=== PATIENT | male | born 1935 | race Caucasian/White ===

== ENCOUNTER 2018-11-07 14:18 | Inpatient (IN) | payer MEDICARE, OTHER ==
[~2018-11-07] VITALS: Ht 167.6 cm; Wt 85.7 kg
[~2018-11-07 14:18] MED LIST: ACETAMINOPHEN325 M1 PO; ADULT LOW DOSE81 MG; ASPIRIN325 PO; CARISOPRODOL 3350 MG PO; HYDROCODONE-AP1 EAC6 PO; MELATONIN 5 MG1 EAC1 PO; MELATONIN5 M1 PO; NATTOKINASE PO; NORCO 5-325 TA1 EACH PO; PRAMIPEXOLE0.125 MG PO; PREDNISONE 10 M10 MG PO; REQUIP 1 MG TABL1 M1 PO; SORINE 80 MG TA80 M1 PO; TOPROL XL25 MG PO; VENTOLIN HFA 1818 GM INH; VIT E PO; XARELTO20 MG PO; ZETIA10 MG PO
[2018-11-07 14:23] VITALS: BP 183/96
[2018-11-07] MEDS ORDERED: LOPRESSOR50 PO (14:32)
[2018-11-07 14:49] LABS: ABSOLUTE EOSINOPHILS 0.1 thou/uL (0.0-0.7); ABSOLUTE LYMPHOCYTES 2.3 thou/uL (0.8-5.3); ABSOLUTE MONOCYTES 0.9 thou/uL (0.0-1.2); ABSOLUTE NEUTROPHILS 3.9 thou/uL (1.6-8.1); BASOPHILS 0.5 %; EOSINOPHILS 1.6 %; HEMATOCRIT 46.2 % (42.0-52.0); HEMOGLOBIN 15.7 gm/dL (14.0-18.0); LYMPHOCYTES 32.1 %; MCH 32.3 pg (26.0-34.0); MCV 95.1 fL (80.0-100.0); MONOCYTES 12.5 %; NUCLEATED RBCS 0 /100WBC; PLATELET COUNT* 205 thou/uL (150-400); POLYS 53.3 %; RBC 4.86 mil/uL (4.50-6.00); RDW-CV 14.2 % (10.5-14.5); WBC 7.2 thou/uL (4.0-11.0)
[2018-11-07 14:58] LABS: ANION GAP 8 mmol/L (7-16); BUN 24 mg/dL (7-18); CALCIUM 8.9 mg/dL (8.5-10.1); CHLORIDE 100 mmol/L (98-107); CO2 28 mmol/L (21-32); CREATININE 1.2 mg/dL (0.6-1.3); GLUCOSE 112 mg/dL (70-99); POTASSIUM 4.1 mmol/L (3.5-5.1); SODIUM 136 mmol/L (136-145)
[2018-11-07 15:11] LABS: ALBUMIN 3.4 g/dL (3.4-5.0); ALKALINE PHOSPHATASE 51 U/L (46-116); MAGNESIUM 2.2 mg/dL (1.8-2.4); NT-PRO BRAIN NAT PEPTIDE 1154 pg/mL (<300); SGOT 22 U/L (15-37); SGPT 18 U/L (30-65); TOTAL BILIRUBIN 0.2 mg/dL (<0.1-1.0); TOTAL PROTEIN 7.4 g/dL (6.4-8.2); TROPONIN-I LEVEL <0.06 ng/mL (<0.06)
[2018-11-07 15:56] LABS: APTT 28.6 Seconds (25.0-31.3); INR 1.2
--- NOTE | 2018-11-07 16:27 | NUR ---
PT CARDIZEM DRIP INCREASED TO 10.
[2018-11-07 17:22] VITALS: BP 147/74
[2018-11-07 20:15] VITALS: BP 120/60
[2018-11-08] VITALS: BP 114/55
[2018-11-08 04:00] VITALS: BP 135/60
[2018-11-08 04:44] LABS: HEMATOCRIT 42.4 % (42.0-52.0); HEMOGLOBIN 14.4 gm/dL (14.0-18.0); MCH 32.1 pg (26.0-34.0); MCV 94.5 fL (80.0-100.0); MPV 7.7 fl. (7.2-11.1); RBC 4.49 mil/uL (4.50-6.00); RDW-CV 13.9 % (10.5-14.5); WBC 6.7 thou/uL (4.0-11.0)
[2018-11-08 05:06] LABS: ALBUMIN 3.1 g/dL (3.4-5.0); CALCIUM 8.9 mg/dL (8.5-10.1); CREATININE 1.2 mg/dL (0.6-1.3); POTASSIUM 4.1 mmol/L (3.5-5.1); TOTAL BILIRUBIN 0.4 mg/dL (<0.1-1.0); TOTAL PROTEIN 6.5 g/dL (6.4-8.2)
--- NOTE | 2018-11-08 06:01 | NUR ---
VSS. PT C/O HEADACHE, RELIEVED BY PRN TYLENOL. HR CONTROLLED, CARDIZEM GTT INFUSING ORDERED. DENIES SOA. CALL LIGHT WITHIN REACH.
[2018-11-08 08:00] VITALS: BP 140/68
--- NOTE | 2018-11-08 09:28 | EKG ---
[place] [address] ELECTROCARDIOGRAM REPORT Name: COSME MONROE Room: [address] ADM IN .R.#: [id number] Admission: 11/07/18 Attend Phys: Radha Brown Discharge: Date of : 39 Report #: [id number] THIS REPORT FOR: //name// [facility] ED Test Date: 2018-11-07 Test Time: 14:26:11 Pat Name: COSME GOLDBERGJOSESITO Department: Room: [facility] Gender: M Jewel Setter: EV : 1935 Requested By: Donna Gaston Order Number: [id number] MD: Lloyd Corona Measurements Intervals [place] Rate: 124 P: [place]: QRS: 22 QRSD: 137 T: 2 QT: 334 QTc: 480 Interpretive Statements Afib/flut and V-paced complexes No further rhythm analysis attempted due to paced rhythm Right bundle branch block Inferior infarct, old Compared to ECG 10/16/2015 10:40:16 Myocardial infarct finding now present Sinus bradycardia no longer present Atrial premature complex(es) no longer present Electronically Signed On 11-08-2018 9:28:21 CDT by Lloyd Corona [email or web address] <ELECTRONICALLY SIGNED> By: Lloyd Corona MD, FACC 11/08/18 0928 1426 1426 Lloyd Corona MD, FACC /EPI
[2018-11-08 12:00] VITALS: BP 122/59
--- NOTE | 2018-11-08 14:25 | 2DMMODE ---
[place] [address] 2 D/M-MODE ECHOCARDIOGRAM Name: COSME MONROE Room: [address] IN .R.#: [id number] Admission: 11/07/18 Attend Phys: Juan Jose Carrington Discharge: Date of : 39 Date of Service: 11/08/18 1425 Report #: [id number] THIS REPORT FOR: //name// APPROVED REPORT Study performed: 11/08/2018 11:11:33 EXAM: Comprehensive 2D, Doppler, and color-flow Echocardiogram Patient Location: Out-Patient BSA: 1.92 HR: 81 bpm BP: 140/68 mmHg Other Information Study Quality: Good Indications Atrial Fibrillation 2D Dimensions IVSd: 12.33 (7-11mm) LVOT Diam: 20.19 (18-24mm) LVDd: 44.84 mm PWd: 11.72 (7-11mm) Ascending Ao: 32.06 (22-36mm) LVDs: 31.40 (25-40mm) Aortic Root: 28.97 mm Volumes Left Atrial Volume (Systole) LA ESV Index: 16.90 mL/m2 Aortic Valve AoV Peak Rob.: 1.41 m/s AO Peak Gr.: 7.97 mmHg LVOT Max P.07 mmHg AO Mean Gr.: 4.29 mmHg LVOT Mean P.41 mmHg LVOT Max V: 0.88 m/s AO V2 VTI: 28.65 cm LVOT Mean V: 0.54 m/s ALEX (VTI): 2.26 cm2 LVOT V1 VTI: 20.27 cm Mitral Valve E/A Ratio: 1.28 MV Decel. Time: 180.26 ms MV E Max Rob.: 0.96 m/s MV PHT: 52.28 ms MVA (PHT): 4.21 [place] [address] 2 D/M-MODE ECHOCARDIOGRAM Name: COSME MONROE Room: [address] IN ..#: [id number] Admission: 11/07/18 Attend Phys: Juan Jose Carrington Discharge: Date of : 39 Date of Service: 11/08/18 1425 Report #: [id number] TDI E/Lateral E': 9.60 E/Medial E': 16.00 Medial E' Rob.: 0.06 m/s Lateral E' Rob.: 0.10 m/s Pulmonary Valve PV Peak Rob.: 0.88 m/s PV Peak Gr.: 3.08 mmHg Tricuspid Valve RAP Estimate: 5.00 mmHg TR Peak Gr.: 28.14 mmHg RVSP: 33.14 mmHg PA Pressure: 33.14 mmHg Left Ventricle The left ventricle is normal size. There is mild left ventricular systolic dyssynergy consistent with underlying bundle branch block. Global LV systolic function appears to be fairly well-preserved. There is normal left ventricular wall thickness. Left ventricular systolic function is normal. LVEF is 50-55%. Transmitral Doppler flow pattern suggests impaired LV relaxation. Right Ventricle The right ventricle is normal size. The right ventricular systolic function is normal. ICD lead is present in the right ventricle. Atria The left atrium size is normal. Pacemaker lead is present in the right atrium. Aortic Valve The aortic valve is normal in structure. No aortic regurgitation is present. There is no aortic valvular stenosis. Mitral Valve Mild mitral annular calcification. Mitral valve leaflets are mildly thickened. Mild mitral regurgitation. No evidence of mitral valve stenosis. Tricuspid Valve The tricuspid valve is normal in structure. Mild tricuspid regurgitation. The RVSP is 35-40 mmHg. Pulmonic Valve The pulmonary valve is normal in structure. Mild [place] [address] 2 D/M-MODE ECHOCARDIOGRAM Name: COSME MONROE Room: [address] IN [facility]#: [id number] Admission: 11/07/18 Attend Phys: Juan Jose Carrington Discharge: Date of : 39 Date of Service: 11/08/18 1425 Report #: [id number] Great Vessels The aortic root is normal in size. IVC is normal in size and collapses >50% with inspiration. Pericardium There is no pericardial effusion. <Conclusion> The left ventricle is normal size. There is normal left ventricular wall thickness. Left ventricular systolic function is normal. LVEF is 50-55%. Transmitral Doppler flow pattern suggests impaired LV relaxation. There is mild left ventricular systolic dyssynergy consistent with underlying bundle branch block. Global LV systolic function appears to be fairly well-preserved. Mild mitral annular calcification. Mitral valve leaflets are mildly thickened. Mild mitral regurgitation. Mild tricuspid regurgitation. The RVSP is 35-40 mmHg. IVC is normal in size and collapses >50% with inspiration. <ELECTRONICALLY SIGNED> By: Lloyd Corona MD, FACC 11/08/18 1425 1425 1425 Lloyd Corona MD, FACC /INF
--- NOTE | 2018-11-08 15:09 | NUR ---
Pt is A&O. Resides at home with his . Active and independent. Pt has a cane that he uses PRN. No hx of HH or SNF. Hx of cardiac rehab. Goal is home at dc, no needs anticipated. Following.
[2018-11-08 16:00] VITALS: BP 131/78
--- NOTE | 2018-11-08 18:18 | NUR ---
PT A/O, SOMEWHAT ANXIOUS. TELE TRACKING A PACED AND ALL VSS ON ROOM AIR. DENIES CP, SOA. PT AMBULATING IN ROOM, SEVERAL VISITORS THIS SHIFT. THIS AFTERNOON PT FELT "LIKE AIR WAS IN HIS HEAD"- BP ALSO SLIGHTLY ELEVATED AT THAT TIME- SPOKE WITH CARDS GLOBAL IMPLEMENTATION MANAGER AND WILL CONT TO MONITOR AT THIS TIME. EDUCATED PT ON NEW MEDS, SAFETY AND PLAN OF CARE. PLEASE SEE ASSESSMENT FOR ADDITIONAL INFORMATION. WILL CONT TO MONITOR
[2018-11-08 20:00] VITALS: BP 164/89
[2018-11-09 00:13] VITALS: BP 147/63
[2018-11-09 04:21] VITALS: BP 147/75
[2018-11-09 05:35] LABS: CHOLESTEROL 209 mg/dL (<200); HDL CHOLESTEROL 44 mg/dL (>40); LDL CHOLESTEROL 141 mg/dL (<100); TC:HDL 4.8 Ratio (Not establshd); TRIGLYCERIDE 124 mg/dL (<150); VLDL 25 mg/dL (<40)
[2018-11-09 05:37] LABS: SERUM ASSESSMENT Clear
--- NOTE | 2018-11-09 05:55 | NUR ---
ASSUMED PATIENT CARE AT 1900. PATIENT ALERT AND ORIENTED TIMES FOUR. NO COMPLAINTS OF PAIN OR DISCOMFORT NOTED. UP AD SHORTY AND IN THE HALLWAY. HOPES TO GO HOME SOON. RN ASSESSMNET AND HOURLY ROUNDING COMPLETED CHARTED.
[2018-11-09 08:11] VITALS: BP 121/67
--- NOTE | 2018-11-09 10:38 | EKG ---
[place] [address] ELECTROCARDIOGRAM REPORT Name: COSME MONROE Room: [address] ADM IN M.R.#: [id number] Admission: 11/07/18 Attend Phys: Radha Brown Discharge: Date of : 39 Report #: [id number] THIS REPORT FOR: //name// [facility] Test Date: 2018-11-09 Test Time: 09:30:10 Pat Name: COSME MONROE Department: Room: [address] Gender: M Fire Assistant: RTBN : 1935 Requested By: Ismael Morales Order Number: [id number] Gareth MD: Ismael Morales Measurements Intervals [place] Rate: 67 P: [place]: 155 QRS: 3 QRSD: 149 T: 14 QT: 453 QTc: 479 Interpretive Statements Atrial-paced complexes Right bundle branch block Inferior infarct, old Baseline wander in lead(s) V5 Compared to ECG 11/07/2018 14:26:11 Atrial fibrillation no longer present Myocardial infarct finding still present Electronically Signed On 11-09-2018 10:38:34 CDT by Ismael Morales [email or web address] <ELECTRONICALLY SIGNED> By: Ismael Morales MD, FACC 11/09/18 1038 Ismael Morales MD, FAC /EPI
[2018-11-09 11:52] VITALS: BP 115/62
[2018-11-09] MEDS ORDERED: TOPROL XL25 MG PO ×2 (12:44→12:46)
--- NOTE | 2018-11-09 14:08 | CON ---
[facility] [address] [place] [address] CONSULTATION Name: COSME MONROE Room: [address] IN .R.#: [id number] Admission: 11/07/18 Attend Phys: Radha Brown Discharge: Date of : 39 Report #: [id number] THIS REPORT FOR: //name// CC: Hayden Plunkett DATE OF SERVICE: 11/07/2018 CARDIOLOGY CONSULTATION HISTORY OF PRESENT ILLNESS: The patient is an 83-year-old white male who I was asked to see in the hospital today after he was noted to be in atrial fibrillation. The patient has a long history of coronary artery disease. He had previous coronary artery stenting and eventually underwent coronary artery bypass surgery almost 8 years ago at [facility]. He had a previous pacemaker inserted for symptomatic bradycardia. I performed a generator change in 2016. He has a previous history of AFib. He could not tolerate sotalol in the past. He was taken off Xarelto because of bleeding. I actually saw him in the office in July when he complained of palpitations. In the office, no mode switching was noted. He was paced in the atrium approximately 60% of the time. He states he had been doing well until today. He felt his heart beating irregular and rapid. He felt lightheaded. He came to the Emergency Room and was found to be in AFib. Denied any recent chest pain, shortness of breath, fever or cough. PAST MEDICAL HISTORY: Otherwise significant for appendectomy, back surgery, carotid endarterectomy, cholecystectomy. He has a history of hypertension, hyperlipidemia, restless leg syndrome. MEDICATIONS: Metoprolol. ALLERGIES: HE HAS A PREVIOUS RASH TAKING ASPIRIN. HE COULD NOT TOLERATE LISINOPRIL IN THE PAST. HE CANNOT TOLERATE CODEINE, LIPITOR, PENICILLIN AND SULFA DRUGS. FAMILY HISTORY: He is adopted. SOCIAL HISTORY: He is . He and his live in [place]. He has a Ph.D. in language. He continues to work for the [employer]. REVIEW OF SYSTEMS: He has had no history of stroke, asthma, peptic ulcer disease, liver disease, kidney disease, cancer, psychiatric illness, chronic skin condition. PHYSICAL EXAMINATION: [place] [address] CONSULTATION Name: COSME MONROE Room: [address]#: [id number] Admission: 11/07/18 Attend Phys: Radha Brown Discharge: Date of : 39 Report #: [id number] GENERAL: Revealed an elderly male, lying in bed. He appeared in no acute distress. VITAL SIGNS: Blood pressure 120/70, pulse is 110 and irregular, respirations nonlabored. HEENT: He is anicteric. Conjunctivae pink. Mucous membranes moist. NECK: Veins nondistended. No carotid bruits. Neck supple. CHEST: Clear to auscultation. CARDIOVASCULAR: Irregular tachycardia. ABDOMEN: Soft. EXTREMITIES: Had no edema. SKIN: Warm and dry. NEUROLOGIC: Nonfocal. RADIOLOGICAL DATA: His ECG on the monitor appears to show atrial fibrillation with occasional paced beat. Workup in the Emergency Room today, he had an echocardiogram done in 2016 that showed an ejection fraction of 60%, aortic sclerosis. His chest x-ray in the Emergency Room today showed normal heart size, pacemaker in place. No pulmonary edema. 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 LABORATORY DATA: Today, sodium 136, BUN 24, creatinine 1.2. Liver function studies were normal. Troponin 0.06. BNP 1154. His white blood cell count 7.2, hemoglobin 15.7. IMPRESSION AND RECOMMENDATIONS: 1. Atrial fibrillation. The patient cannot tolerate sotalol in the past. At this time, I would start amiodarone. If he fails to convert, he may require cardioversion. The patient could not tolerate Xarelto in the past. I did suggest trying Eliquis for anticoagulation. 2. Sick sinus syndrome. The patient has a pacemaker placed. 3. Previous coronary artery bypass surgery. No recent angina. Since the patient is anticoagulated, I would not recommend aspirin. In fact, he had an ALLERGIC REACTION TO ASPIRIN in the past. 4. Hypertension. The patient quit taking his SALIMA inhibitor in the past because of low blood pressure. 5. Previous carotid endarterectomy. The patient followed by Vascular Surgery. 6. Hyperlipidemia. The patient cannot tolerate statin drugs. 7. Restless leg syndrome. <ELECTRONICALLY SIGNED> By: Ismael Morales MD, [facility] 11/09/18 1408 1633 [id number] Morales MD, FACC /nt
[2018-11-09 16:00] VITALS: BP 173/68
--- NOTE | 2018-11-09 19:08 | NUR ---
PT A/O AND VSS. PT SET TO DC THIS AFTERNOON, BUT BECAME LIGHT HEADED AND WILL NOW BE STAYING AN ADDITIONAL NIGHT- VERBAL ORDER TO HOLD DC PER DR VALLADARES. PLEASE SEE ASSESSMENT FOR ADDITIONAL INFORMATION
[2018-11-09 20:20] VITALS: BP 146/60
[2018-11-10] VITALS: BP 107/65
[2018-11-10 04:00] VITALS: BP 146/66
--- NOTE | 2018-11-10 07:42 | NUR ---
PT RESTED COMFORTABLY T/O NIGHT WITHOUT C/O DIZZINESS.PT IS ENERGIZED AND STEADY THIS AM. CALL LIGHT WITHIN REACH
--- NOTE | 2018-11-10 07:48 | NUR ---
I HAVE REVIEWED THE CHARTING OF VALENTINA ANDREWS. I CONCUR WITH HER DOCUMENTATION.
[2018-11-10 08:00] VITALS: BP 140/72
--- NOTE | 2018-11-10 10:02 | NUR ---
ASSUMED CARE OF PT AT 0730. PT RESTING IN RECLINER WAITING FOR BREAKFAST. PT A&0X4, DENIES ANY PAIN OR SHORTNESS OF BREATH AT THIS TIME. PT STATES HIS DIZZINESS HAS NOT IMPROVED AND HES VERY CONCERNED WITH BECOMING DIZZY SO OFTEN. TRACING SR WITH BBB ON THE PRESS CLIPPER. ON RA SAT UPPER 90'S. UP AD SHORTY IN ROOM. PT GOAL FOR TODAY IS MONITOR AND CONTROL DIZZINESS AND DISCHARGE PLANNING TO HOME. AM ASSESSMENT CHARTED. MEDICATIONS PER MAR. PT REPOSITIONS SELF. HOURLY ROUNDING OBSERVED. BED IN LOW POSITION. CALL LIGHT WITHIN REACH. WILL CONTINUE PLAN OF CARE.
[2018-11-10] MEDS ORDERED: PACERONE 200 M200 M1 PO (10:39)
[2018-11-10] MEDS ORDERED: ELIQUIS5 MG PO (10:42)
[2018-11-10 10:49] VITALS: BP 140/72
--- NOTE | 2018-11-10 14:00 | NUR ---
DR VALLADARES HERE TO SEE PT. MEDICATION ADJUSTMENTS MADE-AMIO DECREASED. DISCHARGE ORDERS RECEIVED. DISCHARGE INSTRUCTIONS, CARE NOTES, SCRIPTS AND FOLLOW UP APPTS GIVEN TO PT. PT COMMUNICATES UNDERSTANDING OF DISCHARGE TEACHING. IV AND SEAM PRESSER REMOVED. PT DISCHARGED WITH ALL BELONGINGS AND PAPERWORK VIA WHEELCHAIR WITH [employer]WN PERSONAL VEHICLE.
== END 2018-11-10 14:00 | disposition home or self-care (01) | DRG 309 ==
LOC: M.ERS 14:18 → M.2W 16:09 → M.TBA-ER 16:09 → M.2W 17:33
PROVIDERS: Internal Medicine Cardiovascular Disease; Nurse Practitioner Family; ADMIT Internal Medicine
DX: I48.91 Unspecified atrial fibrillation (principal); D68.69 Other thrombophilia; G25.81 Restless legs syndrome; F41.9 Anxiety disorder, unspecified; G89.29 Other chronic pain; M54.9 Dorsalgia, unspecified; I25.10 Atherosclerotic heart disease of native coronary artery without angina pectoris; I49.5 Sick sinus syndrome; E78.5 Hyperlipidemia, unspecified; F17.210 Nicotine dependence, cigarettes, uncomplicated; Z95.1 Presence of aortocoronary bypass graft; Z90.49 Acquired absence of other specified parts of digestive tract; Z95.0 Presence of cardiac pacemaker; I25.2 Old myocardial infarction; Z86.73 Personal history of transient ischemic attack (TIA), and cerebral infarction without residual deficits; Z88.6 Allergy status to analgesic agent; Z88.1 Allergy status to other antibiotic agents; Z88.0 Allergy status to penicillin; Z88.2 Allergy status to sulfonamides; Z88.8 Allergy status to other drugs, medicaments and biological substances

== ENCOUNTER 2020-04-14 20:49 | Emergency (ER) | payer MEDICARE, OTHER ==
[~2020-04-14] VITALS: Ht 177.8 cm; Wt 90.5 kg
[~2020-04-14 20:49] MED LIST changes: +ELIQUIS5 MG PO; +LOPRESSOR50 PO; +PACERONE 200 M200 M1 PO
[2020-04-14 21:09] LABS: HEMATOCRIT 43.3 % (42.0-52.0); HEMOGLOBIN 14.1 gm/dL (14.0-18.0); MCH 30.5 pg (26.0-34.0); MCHC 32.5 g/dL (28.0-37.0); MCV 93.6 fL (80.0-100.0); MPV 7.2 fl. (7.2-11.1); RBC 4.63 mil/uL (4.50-6.00); RDW-CV 14.6 % (10.5-14.5); WBC 9.1 thou/uL (4.0-11.0)
[2020-04-14 21:14] LABS: CALCIUM 9.4 mg/dL (8.5-10.1); CREATININE 1.4 mg/dL (0.6-1.3); POTASSIUM 4.4 mmol/L (3.5-5.1)
[2020-04-14 21:21] LABS: APTT 26.8 Seconds (25.0-31.3); INR 1.2; PROTIME 12.5 Seconds (9.20-11.50)
[2020-04-14 21:25] LABS: ALBUMIN 3.4 g/dL (3.4-5.0); TOTAL BILIRUBIN 0.4 mg/dL (<0.1-1.0); TOTAL PROTEIN 7.5 g/dL (6.4-8.2)
[2020-04-14 23:50] LABS: URINE BILIRUBIN NEGATIVE (Negative); URINE BLOOD 3+ (Negative); URINE CLARITY CLEAR; URINE COLOR YELLOW; URINE GLUCOSE-RANDOM NEGATIVE (Negative); URINE KETONES NEGATIVE (Negative); URINE LEUKOCYTES NEGATIVE (Negative); URINE NITRITE NEGATIVE (Negative); URINE PROTEIN 1+ (Negative); URINE UROBILINOGEN 0.2 E.U./dl (0.2-1.0)
[2020-04-14 23:56] LABS: BACTERIA 1-9 Few /HPF (None Seen); CASTS None Seen /LPF (None Seen); CRYSTALS None Seen /LPF (None Seen); MUCUS 0-3 Light strn/LPF (None Seen); SQUAMOUS 0-3 Few /LPF (0-3); URINE RBC >20 Many /HPF (0-2); URINE WBC 0-5 Rare /HPF (0-5)
[2020-04-15 01:00] VITALS: BP 106/51
--- NOTE | 2020-04-15 13:43 | EKG ---
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 : 1935 Requested By: Flora Coombs Order Number: [id number] MD: Alessandro Segovia Measurements Intervals [place] Rate: 105 P: [place]: QRS: -103 QRSD: 147 T: -4 QT: 380 QTc: 503 Interpretive Statements Atrial fibrillation Right bundle branch block Inferior infarct, old Compared to ECG 11/09/2018 09:30:10 Atrial-paced complex(es) or rhythm no longer present Myocardial infarct finding still present Electronically Signed On 04-15-2020 13:43:27 INFRASTRUCTURE ADMINISTRATOR by Alessandro Segovia [email or web address] <ELECTRONICALLY SIGNED> By: Alessandro Segovia MD, [facility] 04/15/20 1343 11 11 Alessandro Segovia MD, [facility] /EPI
== END 2020-04-15 01:03 | disposition short-term general hospital (02) ==
LOC: M.ERS 20:49
PROVIDERS: Personal Emergency Response Attendant
DX: I63.9 Cerebral infarction, unspecified (principal); Z20.822 Contact with and (suspected) exposure to COVID-19; I63.30 Cerebral infarction due to thrombosis of unspecified cerebral artery; I48.20 Chronic atrial fibrillation, unspecified; I25.10 Atherosclerotic heart disease of native coronary artery without angina pectoris; I25.2 Old myocardial infarction; R91.8 Other nonspecific abnormal finding of lung field; Z88.2 Allergy status to sulfonamides; Z88.8 Allergy status to other drugs, medicaments and biological substances; Z88.1 Allergy status to other antibiotic agents; Z88.0 Allergy status to penicillin; Z88.5 Allergy status to narcotic agent; Z90.49 Acquired absence of other specified parts of digestive tract; Z95.1 Presence of aortocoronary bypass graft; Z86.73 Personal history of transient ischemic attack (TIA), and cerebral infarction without residual deficits; Z95.0 Presence of cardiac pacemaker